=== PATIENT | female | born 1945 | race Caucasian/White ===

== ENCOUNTER 2018-07-13 16:32 | Emergency (ER) | payer OTHER, MEDICARE ==
[2018-07-13] MEDS ORDERED: HYDROmorphONE/DILAUDID 2 MG/ML INJ IVP ONE (17:38)
--- NOTE | 2018-07-13 17:39 | EDPHY ---
H & P Stated Complaint: Initial neck stiff waking [employer], progressively worse. Denies other s/s. Time Seen by Provider: 07/13/18 17:23 HPI/ROS: Chief complaint: Neck pain History of present illness: This is a 73-year-old female who presents to the emergency department with her for evaluation of neck pain. Patient has recently started a road trip, having driven from [place] approximately 3 days ago. She states that her neck pain began approximately 5 days ago after she woke up. Primarily affects the right side of the neck. It does radiate down to the right scapular region. States it is worse with movement of the neck, especially to the left or right. She wonders if the pain is from sleeping poorly, packing the car or prolonged sitting in the car for the trip itself. She reports it has slowly worsened. She denies other potential precipitating factors such as trauma. She denies associated signs or symptoms including no fever, no headache, no paresthesias, no weakness or paralysis, no bowel or bladder dysfunction. Review of systems: A 10 point review of systems was obtained and other than described above was negative - Personal History Current Tetanus/Diphtheria Vaccine: Yes - Medical/Surgical History Hx Asthma: No Hx Chronic Respiratory Disease: No Hx Diabetes: No Hx Cardiac Disease: No Hx Renal Disease: No Hx Cirrhosis: No Hx Alcoholism: No Hx HIV/AIDS: No Hx Splenectomy or Spleen Trauma: No Other PMH: none - Social History Smoking Status: Former smoker - Physical Exam Exam: General Appearance: Alert, nontoxic. Eyes: Pupils equal and round no pallor or injection. ENT, Mouth: Mucous membranes moist. Respiratory: There are no retractions, lungs are clear to auscultation. Cardiovascular: Regular rate and rhythm. Gastrointestinal: Abdomen is soft and nontender, no masses, bowel sounds normal. Neurological: Alert and oriented x4. Cranial nerves 2-12 grossly intact. Strength and sensation intact and symmetrical. Upper extremity reflexes intact and symmetrical. Lower extremity reflexes with asymmetry, 3+ right patellar, trace left patellar. Skin: Warm and dry, no rashes. Musculoskeletal: Head is nontender. There is tenderness over the right superior trapezius and SCM muscle. She has difficulty moving the head laterally either direction. Tenderness extends down the right paraspinal muscle region the level of the scapula. Rest the back is nontender. There is no tenderness over the spine itself. He is moving all extremities without difficulty. Ambulating well. Psychiatric: Patient is oriented X 3, there is no agitation. Constitutional: Initial Vital Signs Temperature (C) 37.3 C 07/13/18 16:38 Heart Rate 96 07/13/18 16:38 Respiratory Rate 18 07/13/18 16:38 Blood Pressure 168/84 H 07/13/18 16:38 O2 Sat (%) 96 07/13/18 16:38 O2 Delivery Mode Room Air Allergies/Adverse Reactions: No Known Allergies Allergy (Unverified 07/13/18 16:38) Home Medications: Medication Instructions Recorded Hydrocodone/APAP 5/325 [Whitewood 1 tab PO Q6 #6 tab 07/13/18 5/325 (*)] Medical Decision Making - Diagnostics Imaging: Discussed imaging studies w/ call center dispatcher Radiologist ED Course/Re-evaluation: Patient is discussed with my secondary supervising physician Dr. Alex Oconnell. Patient presents to the emergency department for neck and upper back pain. She is nontoxic. Physical exam does reveal limited range of motion and tenderness to her neck and upper back muscles. However she did have asymmetric patellar reflexes. Blood studies unremarkable. MR was pursued of the C and T spine. Abnormalities found in the lower T-spine, including a T12 dural herniation. I have consulted with on-call Neurosurgery, Dr. Love. He believes this is an incidental finding since patient's symptoms are all above this level. He tammi not believe further intervention is warranted at this time if pain is controlled. Patient has been given pain medicine is feeling much better. She is comfortable being discharged. She is asked to follow up with a neurosurgeon and her PCP when she returns home. She is given strict return precautions. Patient voiced understanding and agreement with plan. Differential Diagnosis: Included but not limited to muscle spasm secondary to sprain or strain, torticollis, intracranial lesion, spinal cord lesion - Data Points Laboratory Results: Laboratory Results 07/13/18 18:00 07/13/18 18:00 Medications Given: Discontinued Medications Hydrocodone Bitart/Acetaminophen (Whitewood 5/325mg Prepack#6) 1 btl TAKEHOME EDNOW ONE Stop: 07/13/18 21:15 Last Admin: 07/13/18 21:47 Dose: 1 btl Hydromorphone HCl (Dilaudid) 0.5 mg IVP EDNOW ONE Stop: 07/13/18 17:39 Last Admin: 07/13/18 18:07 Dose: 0.5 mg Ibuprofen (Motrin) 400 mg PO EDNOW ONE Stop: 07/13/18 21:17 Last Admin: 07/13/18 21:47 Dose: 400 mg Departure - Departure Disposition: Home, Routine, Self-Care Clinical Impression: Neck pain Condition: Good Instructions: Hydrocodone/Acetaminophen (By mouth), Cervical Strain (ED) Additional Instructions: Follow-up with your primary care doctor when you return home You also need to follow up with a spine doctor and have them review your MRI Use [id number] Aleve as directed as needed for the next 2-3 days for pain control You have also been prescribed Whitewood. You can take 1 tablet every 6 hr as needed for pain. Whitewood contains Tylenol. Do not take extra Tylenol/ acetaminophen/a Pap with it. It is sedating. If symptoms worsen or new symptoms develop return to the emergency room for recheck Referrals: NURIA MARS MD [Other] - As per Instructions Prescriptions: Hydrocodone/APAP 5/325 [Whitewood 5/325 (*)] 1 tab PO Q6 #6 tab
[2018-07-13 18:31] LABS: PLATELET COUNT 287 10^3/uL (150-400)
[2018-07-13] MEDS ORDERED: HYDROCOD/APAP 5/325 PREPACK#6 BTL TAKEHOME ONE (21:14)
[2018-07-13] MEDS ORDERED: IBUPROFEN 200 MG TAB PO ONE (21:16)
[2018-07-13 21:34] VITALS: BP 158/91
== END 2018-07-13 21:51 | disposition home or self-care (01) ==
DX: M54.2 Cervicalgia (principal)
CPT/HCPCS: 72141; 72146; 96374; 99285; J1170